=== PATIENT | male | born 1930 | race Hispanic/Latino ===

== ENCOUNTER 2018-12-30 11:40 | Emergency (ER) | payer OTHER ==
[~2018-12-30 11:40] MED LIST: AZIT250T9 PO; FISH1CAP49 PO; FLUO-125 PO; HYDR12.54 PO; KETO.5OS OS; METO25TA6 PO; MULT-1258 PO; OFLO35OS OS; OMEP20TA25 PO; PREDAOS OS; SIMV10TA6 PO
[2018-12-30 12:23] LABS: BASOPHILS % (AUTO) 0.3 % (0.0-5.0); EOSINOPHILS % (AUTO) 5.2 % (0.0-8.0); HEMATOCRIT 30.9 % (42-54); LYMPHOCYTES % (AUTO) 20.2 % (21.0-51.0); MEAN CORPUSCULAR HEMOGLOBIN 33.3 pg (27.0-33.0); MEAN CORPUSCULAR HGB CONC 35.6 g/dL (32.0-36.0); MEAN CORPUSCULAR VOLUME 93.7 fL (79-99); NEUTROPHILS % (AUTO) 70.3 % (40.0-77.0); NUCLEATED RED BLOOD CELLS 0.1 % (0.0-0.19); PLATELET COUNT (AUTO) 241 K/uL (130-400); RED CELL DISTRIBUTION WIDTH 16.3 % (11.0-15.5); WHITE BLOOD COUNT (AUTO) 7.4 K/uL (4.8-10.8)
[2018-12-30 12:34] LABS: INR 1.02 (0.85-1.15); PARTIAL THROMBOPLASTIN TIME 27.3 SEC (26.3-35.5); PROTHROMBIN TIME 10.7 SEC (9.6-11.6)
[2018-12-30 12:36] LABS: ALBUMIN 2.9 g/dL (3.5-5.0); BILIRUBIN,TOTAL 0.3 mg/dL (0.2-1.0); TOTAL PROTEIN, SERUM 6.9 g/dL (6.0-8.3)
[2018-12-30] MEDS ORDERED: ASPIRIN 81MG TAB.CHEW ONE (12:53)
[2018-12-30] MEDS ORDERED: IOHEXOL-350 75 ML VIAL IV ONE (12:56)
== END 2018-12-30 22:39 | disposition short-term general hospital (02) ==
LOC: EDH 11:40
DX: G45.8 Other transient cerebral ischemic attacks and related syndromes (principal); I67.2 Cerebral atherosclerosis; E78.5 Hyperlipidemia, unspecified; I10 Essential (primary) hypertension; Z90.49 Acquired absence of other specified parts of digestive tract; Z87.891 Personal history of nicotine dependence
CPT/HCPCS: 36415; 70450; 70496; 70498; 71045; 80053; 82948; 85025; 85610; 85730; 93005; 96360; 96361; 99291; Q9967

== ENCOUNTER 2019-11-19 09:48 | Emergency (ER) | payer OTHER ==
[~2019-11-19 09:48] MED LIST changes: -FLUO-125 PO; +FLUO10CA22 PO; -SIMV10TA6 PO; +SIMV10TA97 PO
[2019-11-19] MEDS ORDERED: ACETAMINOPHEN ELIXIR 325 MG/10.15ML UDCUP ONE (10:02)
[2019-11-19] MEDS ORDERED: TETANUS/DIPHTHERIA TOXOID [ADULT] 0.5 ML VIAL IM ONE (10:03)
[2019-11-19 10:04] LABS: BASOPHILS % (AUTO) 0.3 % (0.0-5.0); EOSINOPHILS % (AUTO) 0.7 % (0.0-8.0); HEMATOCRIT 33.3 % (42-54); LYMPHOCYTES % (AUTO) 11.5 % (21.0-51.0); MEAN CORPUSCULAR HEMOGLOBIN 31.9 pg (27.0-33.0); MEAN CORPUSCULAR HGB CONC 33.9 g/dL (32.0-36.0); MEAN CORPUSCULAR VOLUME 94.1 fL (79-99); MONOCYTES % (AUTO) 6.7 % (3.0-13.0); NEUTROPHILS % (AUTO) 80.2 % (40.0-77.0); PLATELET COUNT (AUTO) 202 K/uL (130-400); RED BLOOD CELL COUNT(AUTO) 3.54 MIL/uL (4.50-6.20); RED CELL DISTRIBUTION WIDTH 15.2 % (11.0-15.5); WHITE BLOOD COUNT (AUTO) 13.4 K/uL (4.8-10.8)
[2019-11-19 10:13] LABS: POTASSIUM 3.9 mmol/L (3.5-5.1)
[2019-11-19 10:18] LABS: ALBUMIN 3.8 g/dL (3.5-5.0); BILIRUBIN,TOTAL 0.6 mg/dL (0.2-1.0); TOTAL PROTEIN, SERUM 8.2 g/dL (6.0-8.3)
[2019-11-19] MEDS ORDERED: OCTYL 2-CYANOACRYLATE 1 EACH TP ONE ×2 (12:17→12:20)
== END 2019-11-19 13:49 | disposition home or self-care (01) ==
LOC: EDH 09:48
DX: S02.40CA Maxillary fracture, right side, initial encounter for closed fracture (principal); E78.5 Hyperlipidemia, unspecified; I10 Essential (primary) hypertension; Z90.49 Acquired absence of other specified parts of digestive tract; Z87.891 Personal history of nicotine dependence; W18.39XA Other fall on same level, initial encounter; Y93.01 Activity, walking, marching and hiking; Y92.89 Other specified places as the place of occurrence of the external cause; Y99.8 Other external cause status
CPT/HCPCS: 36415; 70450; 70486; 72125; 80053; 84484; 85025; 90471; 90714; 93005